=== PATIENT | female | born 1995 | race Caucasian/White ===

== ENCOUNTER → 2016-10-27 | Outpatient (CLI) | payer BC, OTHER ==
--- NOTE | 2016-10-27 12:47 | MAMMOGRAPHY REPORT ---
ULTRASOUND OF RIGHT BREAST: 10/27/2016 CLINICAL HISTORY: 21-year-old woman with a palpable lump in the upper outer quadrant of the right br east and right lateral breast pain that extends from the upper outer quadrant to lower outer quadran t. She has noticed these symptoms for a few weeks. No skin changes or nipple discharge. COMPARISON: No prior exams were available for comparison. FINDINGS: Real-time high-resolution sonographic evaluation was performed in the areas of pain and l ump pointed out by the patient. The area of the lump was pointed out in the 10:00 right breast appr oximately 4 cm from the nipple. There is a ridge of mobile dense tissue on palpation. On ultrasoun d, there is dense fibroglandular tissue and a few superficial fat lobules in the area of concern, wh ich may be explaining the palpable findings. No suspicious solid or cystic mass is seen. Throughou t the lateral breast in the area of pain described by the patient, normal dense glandular tissue is seen without a discrete solid or cystic mass. No suspicious findings are identified to explain the patient's pain. IMPRESSION: ACR BI-RADS CATEGORY 1: NEGATIVE There is no suspicious sonographic abnormality or evidence of malignancy in the lateral right breast to explain the nonfocal mastalgia or palpable lump pointed out by the patient. Therefore, clinical follow-up is recommended, as biopsy of a clinically suspicious mass should not be precluded by nega tive imaging. These results and recommendations were discussed with the patient at the time of the exam. Debbie Tan M.D. ay/:10/27/2016 12:15:57 Director Of Consumer Affairs: Shameka SANCHEZ)(Marisa), [facility] letter sent: Normal 1/2 BI-RADS Code: ACR BI-RADS Category 1: Negative
== END | disposition home or self-care (01) ==
LOC: C.MAMM 11:04
PROVIDERS: ATTEND Internal Medicine
DX: N63 Unspecified lump in breast (principal); N64.4 Mastodynia

== ENCOUNTER → 2016-11-23 | Outpatient (CLI) | payer BC, OTHER | END | disposition home or self-care (01) | LOC: C.LAB1850 16:47 | PROVIDERS: ATTEND Internal Medicine | DX: Z87.898 Personal history of other specified conditions (principal) ==

== ENCOUNTER → 2017-08-26 | Outpatient (CLI) | payer BC, OTHER ==
--- NOTE | 2017-08-26 15:38 | DIAGNOSTIC IMAGING REPORT ---
R FEMUR 2 VIEWS CLINICAL HISTORY: RIGHT THIGH PAIN COMPARISON: MRI 04/19/2015 DISCUSSION: Slight nonspecific cortical thickening proximal femoral shaft. This is a progressive a chronic process possibly related to an old stress related insult. No acute abnormalities appreciated. There are no lytic or blastic findings. There are no abnormal soft tissue calcifications. There is no evidence for soft tissue swelling. IMPRESSION: Subtle cortical thickening of the proximal femoral shaft most likely secondary to old posttraumatic insult and/or healed stress related phenomenon. No acute process. The above report was generated using voice recognition software. It may contain grammatical, syntax or spelling errors. Electronically signed by: Anil Swift M.D. 08/26/2017 3:37 PM Dictated Date/Time: 08/26/2017 3:35 PM
== END | disposition home or self-care (01) ==
LOC: C.RDSM 13:21
PROVIDERS: ATTEND Internal Medicine
DX: M79.659 Pain in unspecified thigh (principal)

== ENCOUNTER → 2017-08-27 | Outpatient (CLI) | payer BC, OTHER ==
--- NOTE | 2017-08-27 17:14 | DIAGNOSTIC IMAGING REPORT ---
R LOWER EXT NONJOINT W/O HISTORY: 21 years-old Female RT THIGH PAIN acute right thigh pain with pain most notably anteriorly within the mid thigh. Patient is a cross-country runner COMPARISON: Right femur radiographs 08/26/2017 TECHNIQUE: Multiplanar multisequence MRI of the right thigh was obtained without the use of contrast. FINDINGS: The large lheef-no-zoyx computer instructor localizer images demonstrate no gross abnormality. The imaged intrapelvic structures are appear to be within normal limits. Trace fluid within the knee joint is likely physiologic. No acute fracture or subluxation identified. No significant degenerative changes of the right hip. No obvious labral tear identified, however this study is not tailored to assess the hip joint. There is mild edema noted adjacent to the right greater trochanter suggesting gluteal insertional enthesitis. There is a 4 x 6 mm T2 hyperintense collection adjacent to the greater trochanter nicely seen on image 16 series 7 compatible with trochanteric bursitis. There is no acute stress fracture or focal bone marrow edema identified. There is minimal cortical thickening of the proximal diaphyseal femur, better seen on comparison radiographs. Soft tissues and thigh musculature appear to be within normal limits. No intramuscular edema identified. IMPRESSION: 1. No evidence of acute stress fracture or focal bone marrow edema. 2. Minimal gluteal insertional enthesitis with trace greater trochanteric bursitis. The above report was generated using voice recognition software. It may contain grammatical, syntax or spelling errors. Electronically signed by: Antoine Sanchez M.D. 08/27/2017 5:12 PM Dictated Date/Time: 08/27/2017 4:33 PM
== END | disposition home or self-care (01) ==
LOC: C.MRIBC 14:45
PROVIDERS: ATTEND Internal Medicine
DX: M79.659 Pain in unspecified thigh (principal)